=== PATIENT | female | born 1955 | race Caucasian/White ===

== ENCOUNTER → 2018-08-10 07:36 | Outpatient (CLI) | payer OTHER, SELFPAY ==
--- NOTE | 2018-08-10 | DI.MG.S_ITS ---
BILATERAL DIGITAL DIAGNOSTIC MAMMOGRAM 3D/2D: 08/10/2018 CLINICAL: Left nipple inversion. Patient states that her nipple has been inverted off and on for 10 years but has been permanently inverted since 2014. Comparison is made to exams dated: 06/22/2017 mammogram, 07/14/2015 mammogram, and 04/22/2014 mammogram - [facility]. The tissue of both breasts is predominantly fatty. There is a coil shaped biopsy clip in the left retroareolar region. The left nipple is inverted, and is stable in appearance on multiple prior exams dating back to comparison of 04/22/14. There is left retroareolar fibroglandular tissue that is stable in appearance on multiple prior exams dating back to comparison of 04/22/14. No other significant masses, calcifications, or other findings are seen in either breast. IMPRESSION: INCOMPLETE: NEEDS ADDITIONAL IMAGING EVALUATION Inverted left nipple with a left retroareolar coil-shaped biopsy clip noted. A targeted left nipple and retroareolar ultrasound is recommended for further evaluation. This exam was interpreted at Station ID: [id number]. NOTE: For mammograms, a report in lay terms will be sent to the patient. Approximately 15% of breast malignancies will not be visualized mammographically. In the management of a palpable breast mass, a negative mammogram must not discourage biopsy of a clinically suspicious lesion. Electronically Signed By: Félix Parrish M.D. ecl/:08/10/2018 09:30:51 letter sent: Additional Imaging Needed ACR BI-RADS Category 0: Incomplete 3340F
--- NOTE | 2018-08-10 | DI.US.S_ITS ---
LIMITED ULTRASOUND OF LEFT BREAST: 08/10/2018 CLINICAL: Inverted left nipple. Patient states she has had an inverted nipple (left), permanently since 2014 and on and off for 10 years. Comparison is made to exams dated: 08/10/2018 mammogram - [facility], 06/22/2017 mammogram, 06/22/2017 ultrasound, and 07/14/2015 mammogram - [facility]. Real-time and Doppler ultrasound of the left breast retroareolar region were performed. Cornell scale images of the real-time examination were reviewed. Targeted ultrasound of the left nipple and retroareolar region demonstrates an inverted left nipple with no other abnormality or mass. There is no focal duct dilitation. An echogenic subcentimeter focus correlating to the known left retroareolar biopsy clip is also noted. IMPRESSION: BENIGN 1) Inverted left nipple with no evidence of an abnormal retroareolar mass. Recommend clinical follow-up with the patient's referring provider for further evaluation and management. A breast MRI can be considered if there is continued clinical concern. 2) No sonographic evidence of malignancy in the imaged left breast. Return to annual screening mammography recommended. The patient is advised to monitor her breasts and to return sooner for re-evaluation should anything grow or change. This exam was interpreted at Station ID: [id number]. Electronically Signed By: Félix Parrish M.D. ecl/:08/10/2018 15:19:55 letter sent: Clinical Evaluation Ultrasound BI-RADS: 2 Benign
== END ==
PROVIDERS: Visit Provider Family Medicine
DX: R92.8 Other abnormal and inconclusive findings on diagnostic imaging of breast (principal); N64.59 Other signs and symptoms in breast
CPT/HCPCS: 76642; 77066; G0279

== ENCOUNTER → 2019-07-24 11:53 | Outpatient (CLI) | payer OTHER, SELFPAY ==
--- NOTE | 2019-07-24 | DI.MG.S_ITS ---
BILATERAL DIGITAL DIAGNOSTIC MAMMOGRAM 3D/2D: 07/24/2019 CLINICAL: Left nipple inversion since 2013. Comparison is made to exams dated: 08/10/2018 mammogram - [facility], 06/22/2017 mammogram, and 04/22/2014 mammogram - [facility]. There are scattered fibroglandular elements in both breasts. No significant masses, calcifications, or other findings are seen in either breast. IMPRESSION: NEGATIVE There is no abnormality seen in the left breast to correspond with the nipple abnormality which patient reports has been stable since at least 2013. No mammographic abnormalities identified since 2014 studies. Patient reports no clinical symptoms or palpable abnormalities. There is no mammographic evidence of malignancy. If patient should develop new nipple abnormalities, suspicious nipple discharge, overlying skin changes, or new palpable mass, recommend follow up mammogram and sonogram at that time to evaluate. Otherwise, recommend follow up annual screening mammogram in one year. This exam was interpreted at Station ID: [id number]. NOTE: For mammograms, a report in lay terms will be sent to the patient. Approximately 15% of breast malignancies will not be visualized mammographically. In the management of a palpable breast mass, a negative mammogram must not discourage biopsy of a clinically suspicious lesion. Electronically Signed By: Pascual Stone M.D. aty/:07/24/2019 14:50:55 letter sent: Normal Exam ACR BI-RADS Category 1: Negative 3341F
== END ==
PROVIDERS: PCP Family Medicine; Visit Provider Family Medicine
DX: Z12.31 Encounter for screening mammogram for malignant neoplasm of breast (principal)
CPT/HCPCS: 77066; G0279

== ENCOUNTER → 2021-08-13 11:06 | Outpatient (CLI) | payer MEDICARE, OTHER, SELFPAY ==
--- NOTE | 2021-08-13 | DI.MG.S_ITS ---
BILATERAL DIGITAL SCREENING MAMMOGRAM 3D/2D WITH CAD: 08/13/2021 Comparison is made to exams dated: 07/24/2019 mammogram, 08/10/2018 ultrasound, 08/10/2018 mammogram - [facility], and 06/22/2017 mammogram - [facility]. There are scattered fibroglandular elements in both breasts. Current study was also evaluated with a Computer Aided Detection (CAD) system. There is a biopsy clip in the left breast. No significant masses, calcifications, or other findings are seen in either breast. There has been no significant interval change. IMPRESSION: NEGATIVE There is no mammographic evidence of malignancy. A 1 year screening mammogram is recommended. This exam was interpreted at Station ID: [id number]. NOTE: For mammograms, a report in lay terms will be sent to the patient. Approximately 15% of breast malignancies will not be visualized mammographically. In the management of a palpable breast mass, a negative mammogram must not discourage biopsy of a clinically suspicious lesion. Electronically Signed By: Martina kurtz/chanelle:08/13/2021 17:04:49 letter sent: Normal Exam ACR BI-RADS Category 1: Negative 3341F
== END ==
PROVIDERS: PCP Family Medicine; Referring Provider Family Medicine; Visit Provider Family Medicine
DX: Z12.31 Encounter for screening mammogram for malignant neoplasm of breast (principal)
CPT/HCPCS: 77063; 77067